=== PATIENT | female | born 1960 | race Caucasian/White ===

== ENCOUNTER 2017-04-05 01:58 | Emergency (ER) | payer MEDICARE | END 2017-04-05 03:50 | disposition home or self-care (01) | LOC: ER1 01:58 | DX: G35 Multiple sclerosis (principal) | CPT/HCPCS: 96374; 96375; 99283; J1885; J2930 ==

== ENCOUNTER 2022-02-04 20:51 | Emergency (ER) | payer MEDICARE ==
[~2022-02-04 20:51] MED LIST: ALPRAZOLAM0.5 MG PO; AMPYRA10 MG PO; BIOTIN2500 MCG PO; BUSPAR 10MG10 MG PO; CYMBALTA 20 MG20 MG PO; DOCOSAHEXAENOIC ACID PO; GABAPENTIN300 MG PO; LEVAQUIN750 MG PO; LIORESAL TAB 1010 MG PO; NEURONTIN 300300 MG PO; OCREVUS IV; PREDNISONE 50 M50 MG PO; ROBAXIN500 MG PO; TRAZODONE HCL100 MG PO; VITAMIN D 11000 UNIT PO
[2022-02-04] MEDS ORDERED: ENDOCET 5-3251 EACH PO (22:26)
== END 2022-02-04 22:41 | disposition home or self-care (01) ==
LOC: ER1 20:51
DX: S76.011A Strain of muscle, fascia and tendon of right hip, initial encounter (principal); X58.XXXA Exposure to other specified factors, initial encounter; Y92.009 Unspecified place in unspecified non-institutional (private) residence as the place of occurrence of the external cause
CPT/HCPCS: 72192; 99283